=== PATIENT | female | born 1950 | race Caucasian/White ===

== ENCOUNTER 2019-05-20 13:04 | Outpatient (CLI) | payer BC, MEDICARE ==
--- NOTE | 2019-05-20 13:39 | ULT ---
ABDOMINAL ULTRASOUND: HISTORY: Right upper quadrant abdominal pain. FINDINGS: The pancreas is mostly obscured by shadowing from bowel gas. The very limited visualized portions of the pancreas do demonstrate a normal sonographic appearance in the region of the pancreatic head. The abdominal aorta is obscured by bowel gas. The visualized portions of the IVC, liver, spleen, gallbladder, and bilateral kidneys demonstrate a n ormal sonographic appearance. The right kidney measures 11.9 cm in length with the left kidney measur ing 11.5 cm in length. The common duct measures just less than 6 mm in diameter, which is within normal limits for the patie nt's age. IMPRESSION: No gallbladder calculi are visualized, and the common duct is normal in caliber. No acute findings ar e seen on this abdominal sonogram. POS: [facility]
== END 2019-05-20 13:05 | disposition home or self-care (01) ==
LOC: BICULT 13:04
PROVIDERS: ATTEND Family Medicine
DX: R10.11 Right upper quadrant pain (principal)
CPT/HCPCS: 93975